=== PATIENT | female | born 1970 | race African-American/Black ===

== ENCOUNTER 2016-11-30 16:06 | Emergency (ER) | payer MEDICAID ==
[~2016-11-30] VITALS: Ht 167.6 cm; Wt 145.4 kg
[~2016-11-30 16:06] MED LIST: CIPR250T2 PO; DOCU1CAP39 PO; FERR325T PO; HYDR12.56 PO; LORTA5 PO
[2016-11-30 16:08] VITALS: BP 183/88; PULSE 112; RESP 20; TEMP 98.3; O2SAT 99
--- NOTE | 2016-11-30 16:38 | PD ---
Physical Exam Date Seen by Provider: Nov 30, 2016 Time Seen by Provider: 16:34 Narrative 46 y/o female patient presents to ED with one week hx increased URI symptoms with Sinus FLORES, Congestion and productive cough with wheezing. Patient feels symptoms are worsening. Patient is a smoker, but hsa not been able to due to current symptoms. Patient states she has had difficulty sleeping do to cough and SOB. Patient also complaining of right pain and swelling. No Specific injury. requesting Ibuprofen. Denies Fever or chest pain. No Abdominal pain or Urinary complaints. V/S Stable. Waiting Bed Placement. Data Data Last Documented VS Vital Signs Date Time Temp Pulse Resp B/P Pulse Ox O2 Delivery O2 Flow Rate FiO2 11/30/16 16:08 98.3 112 20 183/88 99 Room Air [facility] Medical Record Reviewed: Yes Supervised Visit with JUDITH: Yes Condition: Stable Wade Wisdom Nov 30, 2016 16:38
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
[2016-11-30] MEDS ORDERED: RESP: ALBUTEROL 2.5 MG/3 ML NEB (SCH) INH ONE (19:15)
--- NOTE | 2016-11-30 19:22 | RADRPT ---
EXAM DATE/TIME: 11/30/2016 18:51 [facility] COMPARISON: No previous studies available for comparison. INDICATIONS : Chest pain, shortness of breath, congestion, and cough. MEDICAL HISTORY : None. SURGICAL HISTORY : Tubal ligation. ENCOUNTER: Initial ACUITY: 1 week PAIN SCORE: 3/10 LOCATION: Bilateral chest FINDINGS: A single view of the chest demonstrates the lungs to be symmetrically aerated without evidence of mas s, infiltrate or effusion. The cardiomediastinal contours are unremarkable. Osseous structures are intact. CONCLUSION: No acute cardiopulmonary process. Jignesh Godinez MD on November 30, 2016 at 19:20 Board Certified Radiologist. This report was verified electronically.
[2016-11-30 19:23] VITALS: BP 147/90; PULSE 85; RESP 16; TEMP 97.8; O2SAT 98
[2016-11-30] MEDS ORDERED: AZIT250T3 PO (19:53)
[2016-11-30] MEDS ORDERED: BENZ100 PO (19:53)
[2016-11-30] MEDS ORDERED: MEDR4PAK PO (19:53)
[2016-11-30] MEDS ORDERED: DICL75TA PO (19:53)
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
== END 2016-11-30 20:44 | disposition home or self-care (01) ==
LOC: NEPD 16:06
DX: J40 Bronchitis, not specified as acute or chronic (principal); M25.561 Pain in right knee; F17.210 Nicotine dependence, cigarettes, uncomplicated
CPT/HCPCS: 71010; 73564; 73610; 87804; 94664; 99283; J7613